=== PATIENT | female | born 1960 | race Caucasian/White ===

== ENCOUNTER 2019-11-19 12:28 | Outpatient (CLI) | payer BC ==
[2019-11-19] MEDS ORDERED: FISH OIL PO (13:09)
[2019-11-19] MEDS ORDERED: ESTRADIOL CREAM TP (13:09)
[2019-11-19] MEDS ORDERED: CETI-158 PO (13:09)
[2019-11-19] MEDS ORDERED: ONE A DAY WOMEN PO (13:09)
== END 2019-11-19 23:59 | disposition home or self-care (01) ==
LOC: STAR 12:28
PROVIDERS: ATTEND Obstetrics & Gynecology Female Pelvic Medicine and Reconstructive Surgery
DX: Z02.9 Encounter for administrative examinations, unspecified (principal)